=== PATIENT | male | born 1960 | race Caucasian/White ===

== ENCOUNTER 2016-12-31 13:48 | Emergency (ER) | payer BC ==
[2016-12-31] VITALS (11 sets, daily range): BP systolic 112–138; BP diastolic 70–84
[~2016-12-31] VITALS: Ht 172.7 cm; Wt 83.0 kg
[2016-12-31] MEDS ORDERED: SINGULAIR10 MG ORAL (14:00)
[2016-12-31] MEDS: Cyclopentolate 1% Opth Sol LEFT EYE SCH ×3 (14:05→16:39)
[2016-12-31] MEDS: Neosporin Oph Soln 5ml Btl LEFT EYE SCH ×3 (14:05→16:31)
--- NOTE | 2016-12-31 14:12 | Emergency Room Report ---
History of Present Illness General Chief Complaint: General Complaint Source: Patient Present Illness HPI The patient presents with visual problems for approximately 10 days. It's in his left eye. He was evaluated by an environmental engineering technician who found that he had a detached retina. He scheduled to have an operation today. The patient denies any trauma. He denies any major medical problems. The patient denies fevers, nausea, vomiting, diarrhea, chest pain, shortness of breath, coughing, dysuria, skin rashes. He does not suffer from depression. He has been NPO since last night. Allergies: Coded Allergies: No Known Allergies (Unverified , 12/31/16) Patient History Past Medical History: see triage record Social History: Denies: smoking Social History Narrative Reviewed Nursing Documentation: PMH: Agreed, PSxH: Agreed Nursing Documentation-PMH Past Medical History: No Stated History Review of Systems All Other Systems: negative except mentioned in HPI Physical Exam Vital Signs Date Time Temp Pulse Resp B/P Pulse Ox O2 Delivery O2 Flow Rate FiO2 12/31/16 13:56 97.9 56 18 142/92 99 Room Air Sp02 EP Interpretation: reviewed, normal General Appearance: well appearing, no apparent distress, GCS 15 Head: normocephalic, atraumatic Eyes: bilateral eye PERRL, bilateral eye normal inspection ENT: hearing grossly normal, normal voice, moist mucus membranes Neck: full range of motion, supple Respiratory: lungs clear, no respiratory distress, speaking full sentences Cardiovascular #1: regular rate, rhythm Gastrointestinal: normal inspection, normal bowel sounds Musculoskeletal: digits/nails normal, gait/station normal, normal range of motion, no calf tenderness Neurologic: alert, oriented x3, normal gait, grossly normal Psychiatric: mood/affect normal Skin: no rash Medical Decision Making Diagnostic Impression: Primary Impression: Detached retina, left ER Course This healthy 48-year-old man presents with visual changes in his left eye. He' s been diagnosed with a detached retina. Is scheduled to have surgery later today. His history is stable however preoperative labs need to be performed. Also EKG and chest x-ray. He'll be treated with IV hydration and received preoperative eyedrops. Discussed with Dr. Swenson. Patient with normal EKG, normal CXR and preop labs. Taken to OR for operation. Labs Test 12/31/16 14:25 White Blood Count 6.9 K/UL (4.8-10.8) Red Blood Count 4.40 M/UL (4.70-6.10) Hemoglobin 15.1 G/DL (14.2-18.0) Hematocrit 43.7 % (42.0-52.0) Mean Corpuscular Volume 99 FL (80-99) Mean Corpuscular Hemoglobin 34.4 PG (27.0-31.0) Mean Corpuscular Hemoglobin Concent 34.6 G/DL (32.0-36.0) Red Cell Distribution Width 9.9 % (11.6-14.8) Platelet Count 298 K/UL (150-450) Mean Platelet Volume 7.1 FL (6.5-10.1) Neutrophils (%) (Auto) 56.7 % (45.0-75.0) Lymphocytes (%) (Auto) 31.7 % (20.0-45.0) Monocytes (%) (Auto) 8.4 % (1.0-10.0) Eosinophils (%) (Auto) 1.6 % (0.0-3.0) Basophils (%) (Auto) 1.6 % (0.0-2.0) Prothrombin Time 10.2 SEC (9.30-11.50) Prothromb Time International Ratio 1.0 (0.9-1.1) Activated Partial Thromboplast Time 30 SEC (23-33) Sodium Level 141 mEQ/L (135-145) Potassium Level 3.8 mEQ/L (3.4-4.9) Chloride Level 103 mEQ/L (98-107) Carbon Dioxide Level 25 mEQ/L (20-30) Anion Gap 13 (5-15) Blood Urea Nitrogen 10 mg/dL (7-23) Creatinine 1.0 mg/dL (0.7-1.2) Estimat Glomerular Filtration Rate > 60 mL/min (>60) Glucose Level 101 mg/dL (74-106) Calcium Level 9.3 mg/dL (8.6-10.2) Total Bilirubin 1.5 mg/dL (0.0-1.2) Direct Bilirubin 0.3 mg/dL (0.1-0.3) Aspartate Amino Transf (AST/SGOT) 18 U/L (5-40) Alanine Aminotransferase (ALT/SGPT) 15 U/L (3-41) Alkaline Phosphatase 48 U/L (40-129) Total Protein 7.2 g/dL (6.6-8.7) Albumin 4.6 g/dL (3.5-5.2) Globulin 2.6 g/dL Albumin/Globulin Ratio 1.7 (1.0-2.7) EKG Diagnostic Results Rate: normal Rhythm: NSR ST Segments: no acute changes Rhythm Strip Diag. Results EP Interpretation: yes Rhythm: NSR, no PVC's, no ectopy Chest X-Ray Diagnostic Results Chest X-Ray Ordered: Yes # of Views/Limited/Complete: 1 View EP Interpretation: Yes Interpretation: no consolidation, no effusion, no pneumothorax, no acute cardiopulmonary disease Indication: Other Impression: No acute disease Interpreting ER Provider: Korey Last Vital Signs Date Time Temp Pulse Resp B/P Pulse Ox O2 Delivery O2 Flow Rate FiO2 12/31/16 20:00 97.6 59 19 137/83 99 Room Air Status: unchanged Disposition: PLACE IN OBSERVATION Condition: Stable Raman Nair M.D. Dec 31, 2016 14:12
[2016-12-31 15:04] LABS: BASOPHILS % (AUTO) 1.6 % (0.0-2.0); EOSINOPHILS % (AUTO) 1.6 % (0.0-3.0); LYMPHOCYTES % (AUTO) 31.7 % (20.0-45.0); MEAN CORPUSCULAR HEMOGLOBIN 34.4 PG (27.0-31.0); MEAN CORPUSCULAR HGB CONC 34.6 G/DL (32.0-36.0); MEAN CORPUSCULAR VOLUME 99 FL (80-99); MEAN PLATELET VOLUME 7.1 FL (6.5-10.1); MONOCYTES % (AUTO) 8.4 % (1.0-10.0); NEUTROPHILS % (AUTO) 56.7 % (45.0-75.0); PLATELET COUNT 298 K/UL (150-450); RED CELL DISTRIBUTION WIDTH 9.9 % (11.6-14.8); WHITE BLOOD COUNT 6.9 K/UL (4.8-10.8)
[2016-12-31 15:12] LABS: PROTHROMBIN TIME 10.2 SEC (9.30-11.50)
[2016-12-31 15:15] LABS: ALANINE AMINOTRANSFERASE 15 U/L (3-41); ALBUMIN/GLOBULIN RATIO 1.7 (1.0-2.7); ANION GAP 13 (5-15); ASPARTATE AMINO TRANSFERASE 18 U/L (5-40); CALCIUM 9.3 mg/dL (8.6-10.2); CARBON DIOXIDE 25 mEQ/L (20-30); CHLORIDE 103 mEQ/L (98-107); GLOMERULAR FILTRATION RATE > 60 mL/min (>60); HEMOLYSIS 8; POTASSIUM 3.8 mEQ/L (3.4-4.9); SODIUM 141 mEQ/L (135-145); TOTAL PROTEIN 7.2 g/dL (6.6-8.7)
[2016-12-31 15:27] LABS: BILIRUBIN,DIRECT 0.3 mg/dL (0.1-0.3)
--- NOTE | 2016-12-31 15:45 | Pre-op HX & Phy Repo 2 SIG ---
DATE OF ADMISSION: 12/31/2016 PREOPERATIVE DIAGNOSIS: Retinal detachment, left eye. BRIEF NOTE: This is a first [facility] admission for this patient, who is a very nice 56-year-old gentleman, who complained of one week's history of diminished vision in the inferonasal quadrant of the left eye. He was found to have a localized retinal detachment. PAST OCULAR HISTORY: Negative for surgery or laser. He is roughly a minus 4.5 diopter myope. PAST MEDICAL HISTORY: Remarkable for GERD. MEDICATIONS: He takes medicines as needed for his gastrointestinal discomfort. ALLERGIES: He has no known allergies. PHYSICAL EXAMINATION: HEENT: Best vision at the time of admission was 20/25- in the right eye and 20/25 in the left with pressures of 17 and 15. The anterior segments were quiet with only early nuclear sclerosis of each lens. Fundus examination of the right eye was benign. There was a posterior vitreous separation. The left fundus showed a fairly sizable horseshoe tear at the 1:30 position with localized fluid extending down to the edge of the supratemporal arcade. The macula remained attached. There were 2 suspicious areas inferotemporally that appear to represent areas of cobblestone degeneration with possible old tears. General physical examination will be done in the emergency room. ASSESSMENT: Localized retinal detachment, left eye. PLAN: The plan is to perform a pars plana vitrectomy with cryopexy and gas injection on the left eye. A scleral buckle with possibly be done if it is felt there are potentially open breaks below. The risks and benefits of surgery were gone over the patient with potential for infection, worsening of the cataract, hemorrhage, glaucoma, remote possibility of loss of the eye, and the possibility of additional surgeries was mentioned. The patient understands and consents to the operation, which will be performed this afternoon. Josue Whaley M.D. DR: KIA JOB#: [id number] CC: JAVIER
[2016-12-31] MEDS ORDERED: Pred Forte 1% Opth Susp 1ml ONE (16:31)
[2016-12-31] MEDS ORDERED: BSS 500ml btl ONE (16:31)
[2016-12-31] MEDS ORDERED: Kenalog-40 1ml Vial ONE (16:31)
[2016-12-31] MEDS ORDERED: Dexamethasone 4mg/ml vial ONE (16:32)
[2016-12-31] MEDS ORDERED: Kenalog-10 5ml Inj ONE (16:32)
[2016-12-31] MEDS ORDERED: Sodium Hyaluronate 10 mg/ml 0.85ml ONE (16:32)
[2016-12-31] MEDS ORDERED: Maxitrol Opth Oint 3.5gm ONE (16:32)
[2016-12-31] MEDS ORDERED: BSS 15ml BTL ONE (16:32)
[2016-12-31] MEDS ORDERED: EPINEPHrine 1mg/1ml Amp ONE (16:32)
[2016-12-31] MEDS ORDERED: Tetracaine 0.5% Opth Soln ONE (16:32)
[2016-12-31] MEDS ORDERED: Lidocaine 2% MPF 5ml Vial INJ ONE (16:33)
[2016-12-31] MEDS ORDERED: Bupivacaine 0.75% 30ml vial INJ ONE (16:33)
[2016-12-31] MEDS ORDERED: Povidone-Iodine 5% opth solution ONE (16:34)
--- NOTE | 2016-12-31 16:37 | Pre-Procedure Note/Attestation ---
Pre-Procedure Note/Attestation Complete Prior to Procedure Planned Procedure: left Procedure Narrative: PPV, possible scleral buckle, endolase, cryopexy, gas-fluid exchange L eye Indications for Procedure Pre-Operative Diagnosis: Retinal detachment L eye Attestation I attest that I discussed the nature of the procedure; its benefits; risks and complications; and alternatives (and the risks and benefits of such alternatives ), prior to the procedure, with the patient (or the patient's legal residential sales representative). I attest that, if there was a reasonable possibility of needing a blood transfusion, the patient (or the patient's legal residential sales representative) was given the [facility] standardized written summary, pursuant to the [place] Blood Safety Act ([place] Health and Safety Code # 1645, as amended). I attest that I re-evaluated the patient just prior to the surgery and that there has been no change in the patient's H&P, except as documented below: THOMAS CARBAJAL Dec 31, 2016 16:37
[2016-12-31] MEDS ORDERED: Norco 5mg/325mg tab ORAL PRN (16:45)
[2016-12-31] MEDS ORDERED: Gatifloxacin Opth Solution 0.5% LEFT EYE SCH (17:00)
[2016-12-31] MEDS ORDERED: Diclofenac Sod 0.1% Op Soln LEFT EYE SCH (17:00)
[2016-12-31] MEDS ORDERED: Phenylephrine 2.5% Op Soln LEFT EYE SCH (17:00)
[2016-12-31] MEDS ORDERED: Cyclopentolate 1% Opth Sol LEFT EYE SCH (17:00)
[2016-12-31] MEDS ORDERED: Pred Forte 1% Opth Susp 1ml LEFT EYE ONE (17:00)
[2016-12-31] MEDS ORDERED: Flurbiprofen 0.03% Opth Sol 2.5ml ONE (17:03)
--- NOTE | 2016-12-31 17:25 | Diagnostic Imaging Report ---
Indication: Cough Technique: One view of the chest Comparison: none Findings: Lungs and pleural spaces are clear. Heart size is normal. Impression: No acute process
--- NOTE | 2016-12-31 17:49 | Anethesia Preoperative Eval ---
Anesthesia Pre-op PMH/ROS General Date of Evaluation: Dec 31, 2016 Time of Evaluation: 16:55 Anesthesiologist: Jeri ASA Score: ASA 2 Mallampati Score Class I : Soft palate, uvula, fauces, pillars visible Class II: Soft palate, uvula, fauces visible Class III: Soft palate, base of uvula visible Class IV: Only hard plate visible Mallampati Classification: Class II Surgeon: Jovana Diagnosis: L eye retinal detachment Surgical Procedure: L eye PPV Anesthesia History: none Family History: no anesthesia problems Allergies: Coded Allergies: No Known Allergies (Unverified , 12/31/16) Medications: see eMAR Past Medical History Cardiovascular: Denies: CAD, HTN, SD, arrhythmia, other, valve dz Pulmonary: Denies: COPD, NIRALI, asthma, other Gastrointestinal/Genitourinary: Reports: GERD, Denies: CRI, ESRD, other Neurologic/Psychiatric: Denies: CVA, TIA, dementia, depression/anxiety, other Endocrine: Denies: DM, hypothyroidism, other, steroids HEENT: Denies: PILOT STATION (L), PILOT STATION (R), cataract (L), cataract (R), glaucoma, other Hematology/Immune: Denies: DVT, anemia, bleeding disorder, other Musculoskeletal/Integumentary: Denies: DDD, DJD, OA, RA, edema, other PMH Narrative: acute change in vision L eye during last week PSxH Narrative: Colonoscopy, T&A Anesthesia Pre-op Phys. Exam Physician Exam Last Vital Signs Date Time Temp Pulse Resp B/P Pulse Ox O2 Delivery O2 Flow Rate FiO2 12/31/16 16:40 98.0 56 16 112/70 99 Room Air Constitutional: NAD Neurologic: CN 2-12 intact Cardiovascular: RRR, no M/R/G Respiratory: CTA Gastrointestinal: S/NT/ND Airway Exam Mallampati Score: Class II MO: full Neck: flexible ROM: full Teeth: intact Dentures: no lower, no upper Anesthesia Pre-op A/P Labs Hematology Test 12/31/16 14:25 White Blood Count 6.9 K/UL (4.8-10.8) Red Blood Count 4.40 M/UL (4.70-6.10) L Hemoglobin 15.1 G/DL (14.2-18.0) Hematocrit 43.7 % (42.0-52.0) Mean Corpuscular Volume 99 FL (80-99) Mean Corpuscular Hemoglobin 34.4 PG (27.0-31.0) H Mean Corpuscular Hemoglobin Concent 34.6 G/DL (32.0-36.0) Red Cell Distribution Width 9.9 % (11.6-14.8) L Platelet Count 298 K/UL (150-450) Mean Platelet Volume 7.1 FL (6.5-10.1) Neutrophils (%) (Auto) 56.7 % (45.0-75.0) Lymphocytes (%) (Auto) 31.7 % (20.0-45.0) Monocytes (%) (Auto) 8.4 % (1.0-10.0) Eosinophils (%) (Auto) 1.6 % (0.0-3.0) Basophils (%) (Auto) 1.6 % (0.0-2.0) Coagulation Test 12/31/16 14:25 Prothrombin Time 10.2 SEC (9.30-11.50) Prothromb Time International Ratio 1.0 (0.9-1.1) Activated Partial Thromboplast Time 30 SEC (23-33) Chemistry Test 12/31/16 14:25 Sodium Level 141 mEQ/L (135-145) Potassium Level 3.8 mEQ/L (3.4-4.9) Chloride Level 103 mEQ/L (98-107) Carbon Dioxide Level 25 mEQ/L (20-30) Anion Gap 13 (5-15) Blood Urea Nitrogen 10 mg/dL (7-23) Creatinine 1.0 mg/dL (0.7-1.2) Estimat Glomerular Filtration Rate > 60 mL/min (>60) Glucose Level 101 mg/dL (74-106) Calcium Level 9.3 mg/dL (8.6-10.2) Total Bilirubin 1.5 mg/dL (0.0-1.2) H Direct Bilirubin 0.3 mg/dL (0.1-0.3) Aspartate Amino Transf (AST/SGOT) 18 U/L (5-40) Alanine Aminotransferase (ALT/SGPT) 15 U/L (3-41) Alkaline Phosphatase 48 U/L (40-129) Total Protein 7.2 g/dL (6.6-8.7) Albumin 4.6 g/dL (3.5-5.2) Globulin 2.6 g/dL Albumin/Globulin Ratio 1.7 (1.0-2.7) Studies Pre-op Studies: EKG - NSR Risk Assessment & Plan Assessment: ASA 2 Plan: MAC with retrobulbar block Status Change Before Surgery: No Pre-Antibiotics Drug: none GRETA DUQUE M.D. Dec 31, 2016 17:49
[2016-12-31] MEDS ORDERED: DiphenhydrAMINE 50mg/ml Inj IVP PRN (18:00)
[2016-12-31] MEDS ORDERED: fentaNYL 100 mcg/2 mL IV PRN (18:00)
[2016-12-31] MEDS ORDERED: Midazolam 2mg/2ml Inj ONE (18:00)
[2016-12-31] MEDS ORDERED: Propofol 10mg/ml 20ml IV ONE (18:00)
[2016-12-31] MEDS ORDERED: fentaNYL 100 mcg/2 mL IV ONE (18:00)
--- NOTE | 2016-12-31 18:17 | Immediate Post-Op Evaluation ---
Immediate Post-Op Evalulation Immediate Post-Op Evalulation Procedure: L eye PPV fluid to gas exchange laser treatment Date of Evaluation: Dec 31, 2016 Time of Evaluation: 18:15 IV Fluids: 400 Blood Products: none Estimated Blood Loss: min Urinary Output: none Blood Pressure Systolic: 126 Blood Pressure Diastolic: 54 Pulse Rate: 63 Respiratory Rate: 20 O2 Sat by Pulse Oximetry: 99 Temperature (Fahrenheit): 97.6 Pain Score (1-10): 2 Nausea: No Vomiting: No Complications none Patient Status: awake, patent, none Hydration Status: adequate GRETA DUQUE M.D. Dec 31, 2016 18:17
--- NOTE | 2016-12-31 18:19 | 48 Hour Post Anesthesia Eval ---
Post Anesthesia Evaluation Procedure: L eye PPV fluid to gas exchange laser treatment Date of Evaluation: Dec 31, 2016 Time of Evaluation: 19:56 Blood Pressure Systolic: 132 0: 64 Pulse Rate: 68 Respiratory Rate: 22 Temperature (Fahrenheit): 97.6 O2 Sat by Pulse Oximetry: 99 Airway: patent Nausea: No Vomiting: No Pain Intensity: 2 Hydration Status: adequate Cardiopulmonary Status: stable Mental Status/LOC: patient returned to baseline Follow-up Care/Observations: n/a Post-Anesthesia Complications: none Follow-up care needed: ready to discharge GRETA DUQUE M.D. Dec 31, 2016 18:19
--- NOTE | 2017-01-01 09:01 | Brief Operative Note ---
Immediate Post Operative Note Operative Note Chief Complaint: Shadow in vision L eye Pre-op Diagnosis: Retinal detachment L eye Procedure: PPV, peripheral cryopexy (6 spots) , endolaser (333 spots), gas/fluid exchange ( 24% SF-6) L eye Post-op Diagnosis: same as pre-op Surgeon: mei Anesthesiologist: ivory Anesthesia: MAC Specimen: none Complications: none Condition: stable Estimated Blood Loss: none Drains: none Implant(s) used?: No THOMAS CARBAJAL Jan 01, 2017 09:01
--- NOTE | 2017-01-01 10:00 | Operative Note - Dictated ---
DATE OF OPERATION: 12/31/2016 PREOPERATIVE DIAGNOSIS: Retinal detachment, left eye. POSTOPERATIVE DIAGNOSIS: Retinal detachment, left eye. PROCEDURES: 1. Pars plana vitrectomy. 2. Peripheral cryopexy. 3. Endolaser. 4. Gas fluid exchange, left eye. SURGEON: Josue Whaley M.D. KEG INSPECTOR: None. ANESTHESIA: Local with sedation. ANESTHESIOLOGIST: Killian Wilcox M.D. JUSTIFICATION FOR SURGERY: This is a 56-year-old man noted about a weeks history of a shadow in the vision of the left eye. He was found to have a localized retinal detachment. BRIEF NOTE: The patient brought to the operative room, placed on operating room table in supine position. After time-out was performed and agreed upon by the staff. Initial monitoring was secured by Dr. Wilcox. Retrobulbar and Van Lint blocks were then given in the standard way. When the blocks had taken effect, he was prepped and draped in normal manner. A lid speculum was inserted into the left eye. Using a 23-gauge trocar system, cannulas were placed in all except infranasal quadrant. Infusion was secured inferotemporally. Vitrectomy was begun posterior to the lens taking care to avoid contact. A central core vitrectomy was performed removing dense vitreous debris. The detached posterior hyaloid was also removed. The large horseshoe tear was noted in the superotemporal quadrant. Traction on the flap of this tear was gently removed with the shaving mode of the vitrector. Vitrectomy was carried further peripherally leaving a small vitreous skirt. The eye was examined and areas of pigmentation which appeared to be cobblestone were seen inferotemporally and few pigment flecks noted inferiorly. No definite breaks were seen. The cannulated extrusion needle was then used to drain fluid directly through the hole to flatten the retina to the tune of about 80%. With the retina now sufficiently flattend, the cryoprobe was brought into the field and a gentle cryolesions were used to surround the tear under visualization with the wide-angle viewing system. Additional spots of cryo were placed inferotemporally in the areas of cobblestone where small breaks were suspected, but none were seen. An air-fluid exchange was then performed with suction directly through the large break. With the break now flattened, the Endolaser was brought to the eye. Additional retinopexy was then made with the laser to surround the area of the retinal tear. Several additional prophylactic spots of laser were placed inferiorly where there was pigmentation, but again no holes were found. At this juncture, a gas exchange was performed leaving about a 25% fill with fluid in an effort to prevent postoperative wet retinal folds. A 24% mixture of SF6 was used. The cannulas were removed. All sclerotomies were closed with a single suture of 8-0 Vicryl using a single surgeon's knot for later easy removal. The eye was left relatively soft and normal. Subconjunctival Decadron and gentamicin were then injected and topical Maxitrol and prednisolone drops were instilled as well as Maxitrol ointment. The eye was patched and shielded and the patient was taken to recovery in excellent condition to be placed face down for the next 2 hours in an effort to migrate the fluid away from posteriorly. Josue Whaley M.D. DR: KIA JOB#: [id number] CC: Josue Whaley M.D.; Fax#: [phone] [facility]
--- NOTE | 2017-01-03 20:21 | Cardiology Report ---
APPROVED REPORT EKG Measurement Heart [id number] Normal sinus rhythm Normal ECG
== END 2016-12-31 16:45 ==
LOC: EMR 14:22
DX: H33.8 Other retinal detachments (principal)
CPT/HCPCS: 36415; 67108; 71010; 80053; 82248; 85025; 85610; 85730; 93005; 99285; J0171; J1100; J2250; J2704; J3010; J3301; J3470; J3490; 94003; 94150